=== PATIENT | male | born 1935 | race Caucasian/White ===

== ENCOUNTER 2016-12-16 14:03 | Emergency (ER) | payer MEDICARE ==
[~2016-12-16 14:03] MED LIST: ASA5GR PO; ASAB PO; MULTIPLE VIT PO; NORV5 PO; PHILLIPS COLON HEALT PO; SYN075 PO; SYN88 PO
== END 2016-12-16 18:30 | disposition home or self-care (01) ==
LOC: ER 14:03
DX: S09.90XA Unspecified injury of head, initial encounter (principal); S14.109A Unspecified injury at unspecified level of cervical spinal cord, initial encounter; S20.229A Contusion of unspecified back wall of thorax, initial encounter; I10 Essential (primary) hypertension; Z87.891 Personal history of nicotine dependence; Z88.2 Allergy status to sulfonamides; Z91.038 Other insect allergy status; Z79.82 Long term (current) use of aspirin; Z79.899 Other long term (current) drug therapy; W19.XXXA Unspecified fall, initial encounter; Y92.009 Unspecified place in unspecified non-institutional (private) residence as the place of occurrence of the external cause
CPT/HCPCS: 70450; 72125; 99284; A9270-GY